=== PATIENT | male | born 1995 | race Caucasian/White ===

== ENCOUNTER → 2020-05-24 13:48 | Outpatient (BNVA) | payer OTHER, SELFPAY | PROVIDERS: PCP Internal Medicine; Visit Provider Internal Medicine Rheumatology | DX: M54.89 Other dorsalgia (principal); K50.00 Crohn's disease of small intestine without complications; Z87.19 Personal history of other diseases of the digestive system; F17.220 Nicotine dependence, chewing tobacco, uncomplicated; Z79.899 Other long term (current) drug therapy | CPT/HCPCS: 99204 ==